=== PATIENT | female | born 1995 | race Caucasian/White ===

== ENCOUNTER → 2018-02-25 11:33 | Outpatient (CLI) | payer BC, SELFPAY ==
[2018-02-24 12:39] LABS: Internal QC Validated? YES +Cl - CLEAR BKGD; Pregnancy, Urine Negative Negative
[2018-02-25 14:15] LABS: AST(SGOT) 66 U/L (15-37); Alanine Aminotransfer ALT/SGPT 33 U/L (13-56); Albumin, Serum 3.7 g/dL (3.2-5.0); Alkaline Phosphatase 41 U/L (45-117); Bilirubin, Direct 0.12 mg/dL (0.00-0.30); Cholesterol 202 mg/dL (200); Globulin 3.6 g/dL (2.2-4.2); High Density Lipoprotein 92 mg/dL; Protein, Total 7.3 g/dL (6.4-8.2); Triglycerides 82 mg/dL; Very Low Density Lipoprotein 16 mg/dL (5-40)
== END ==
PROVIDERS: Referring Provider Dermatology; Visit Provider Dermatology
DX: Z00.00 Encounter for general adult medical examination without abnormal findings (principal); L70.0 Acne vulgaris; R11.0 Nausea; Z79.899 Other long term (current) drug therapy
CPT/HCPCS: 36415; 80061; 80076; 81025

== ENCOUNTER → 2018-04-13 10:26 | Outpatient (CLI) | payer BC, SELFPAY ==
[2018-04-13 12:56] LABS: Internal QC Validated? YES +Cl - CLEAR BKGD; Pregnancy, Urine Negative Negative
== END ==
PROVIDERS: Referring Provider Dermatology; Visit Provider Dermatology
DX: L70.0 Acne vulgaris (principal); Z79.899 Other long term (current) drug therapy
CPT/HCPCS: 81025

== ENCOUNTER → 2018-05-12 10:37 | Outpatient (CLI) | payer BC, SELFPAY ==
[2018-05-12 12:28] LABS: Internal QC Validated? YES +Cl - CLEAR BKGD
[2018-05-12 12:32] LABS: Pregnancy, Urine Negative Negative
--- OUTSIDE RECORDS SUMMARY | 2018-08-13 14:47 | XMS RPT_ITS ---
:1995 Author Organization OHIP Care Team Providers Name Role Phone Jennifer Jimenez Attending Unavailable Jennifer Jimenez Referring Unavailable DIAZ VILLANUEVA Primary Care Unavailable Jennifer Jimenez Attending Unavailable Jennifer Jimenez Referring Unavailable DIAZ VILLANUEVA Primary Care Unavailable Jennifer Jimenez Attending Unavailable Jennifer Jimenez Referring Unavailable DIAZ VILLANUEVA Primary Care Unavailable PROBLEMS PROBLEMS DATE TYPE CONDITION / CODE ATTENDING STATUS SOURCE 05/12/2018 Unknown L70.0 - Acne CrJennifer hoyt Active [facility] vulgaris / Community L70.0(ICD-10) Hospital Repository 05/12/2018 Unknown Z79.899 - Other Jennifer Jimenez Active [facility] (current[facility] drug Hospital therapy / Repository Z79.899(ICD-10) 02/25/2018 Unknown R11.10 - Jennifer Jimenez Active [facility] Vomiting, Community unspecified / Hospital R11.10(ICD-10) Repository 02/25/2018 Unknown Z00.00 - Jennifer Jimenez Active [facility] Encounter for [facility] medical Repository examination without abnormal findings / Z00.00(ICD-10) 01/15/2018 Active Dysuria / NA Active [facility] R30.0(ICD-10) [facility] [place] Repository PROCEDURES PROCEDURES No Procedure Records FoundRESULTS RESULTS ,URINE Collected: 05/12/2018 Status: F Source: [place] 10:42 AM [facility] REPOSITORY TYPE CODE TESTS RESULT OUT OF REFERENCE UNITS RANGE LAB L400.8000 Negative Normal HCGUQUAL Negative Result Comment: Very dilute urine specimens, as indicated by a low specific gravity, may not contain solar manufacturer's representative levels of hCG. If is still suspected, a first morning urine specimen should be collected 48 hours later and tested. Performed By: #### L400.7600 #### [facility] [address] [place], [place], [address] ,URINE Collected: 04/13/2018 Status: F Source: [place] 10:34 AM [facility] REPOSITORY TYPE CODE TESTS RESULT OUT OF REFERENCE UNITS RANGE LAB L400.8000 Negative Normal HCGUQUAL Negative Result Comment: Very dilute urine specimens, as indicated by a low specific gravity, may not contain solar manufacturer's representative levels of hCG. If is still suspected, a first morning urine specimen should be collected 48 hours later and tested. Performed By: #### L400.7600 #### [facility] [address] [place], [place], [address] LIVER PROFILE Collected: 02/25/2018 Status: F Source: [place] 11:34 AM [facility] REPOSITORY TYPE CODE TESTS RESULT OUT OF RANGE REFERENCE UNITS LAB L501.1500 6.4-8.2 g/dL Normal T PROT 7.3 LAB L501.1800 3.2-5.0 g/dL Normal ALB 3.7 LAB L501.1950 2.2-4.2 g/dL Normal GLOB 3.6 LAB L501.4100 15-37 U/L High AST 66 LAB L501.4305 45-117 U/L Low ALK P 41 LAB L501.4405 13-56 U/L Normal ALT 33 LAB L501.4600 0.20-1.00 mg/dL Normal T BILI 0.40 LAB L501.4700 0.00-0.30 mg/dL Normal D BILI 0.12 Performed By: #### L500.3400, L500.4100 #### [facility] [address] [place], [place], [address] LIPID PROFILE Collected: 02/25/2018 Status: F Source: [place] 11:34 AM [facility] REPOSITORY TYPE CODE TESTS RESULT OUT OF RANGE REFERENCE UNITS LAB L501.4900 200 mg/dL High CHOL 202 Result Comment: <200 mg/dL Desirable 200-240 mg/dL Borderline >240 mg/dL High Risk LAB L501.5000 mg/dL Normal TRIG 82 Result Comment: The drugs N-Acetylcysteine and Metamizole may falsely depress this assay. Serum Triglycerides Reference Interval Normal <150 mg/dL Borderline high 150 - 199 mg/dL High 200 - 499 mg/dL Very High > or = 500 mg/dL LAB L501.6400 mg/dL Normal HDL 92 Result Comment: The drugs N-Acetylcysteine and Metamizole may falsely depress this assay. Reference Range HDL <40 mg/dL Low HDL Cholesterol HDL >or= 60 mg/dL High HDL Cholesterol LAB L501.6500 0-130 mg/dL Normal LDL 94 LAB L501.6600 5-40 mg/dL Normal VLDL 16 Performed By: #### L500.3400, L500.4100 #### [facility] [address] [place], [place], [address] ,URINE Collected: 02/24/2018 Status: F Source: [place] 11:11 AM [facility] REPOSITORY TYPE CODE TESTS RESULT OUT OF REFERENCE UNITS RANGE LAB L400.8000 Negative Normal HCGUQUAL Negative Result Comment: Very dilute urine specimens, as indicated by a low specific gravity, may not contain solar manufacturer's representative levels of hCG. If is still suspected, a first morning urine specimen should be collected 48 hours later and tested. Performed By: #### L400.7600 #### [facility] [address] [place], [place], [address] PROGRESS Observed: 01/15/2018 Status: COMPLETED Source: [place] 10:47 AM [facility] REPOSITORY HNO ID: [id number] Author: Brennan Brice Service: (none) Author Type: Nurse Practitioner Type: Progress Notes Filed: 01/15/2018 11:11 AM Note Text: SUBJECTIVE: Paul Nolan is a 22 year old female. Who presents today with Burning and pain with urination since Thursday. She has had UTI in the past. She states she gets them at least once a year. She is using azo. She is also drinking lots of fluids. No fever abd pain v cp or sob HPI No past medical history on file. No family history on file. Social History Substance Use Topics - Smoking status: Never Smoker - Smokeless tobacco: Never Used - Alcohol use Not on file ALLERGIES No Known Allergies No current outpatient prescriptions on file. No current facility-administered medications for this visit. OBJECTIVE: BP 122/80 Pulse 80 Temp 36.6 ?C (97.9 ?F) (Tympanic) Resp 16 Wt 67.9 kg (149 lb 11.2 oz) ROS all other systems reviewed and are negative Physical Exam Constitutional: Well developed, well nourished, NAD, alert and oriented to person , place and time, in no apparent distress. ENT: Head is atraumatic, airway patent, mucosal membranes moist. Eyes: EOMI, PERRL, no drainage, vision unchanged Neck: supple with no palpable lymph nodes, no midline tenderness Cardiac: Normal rate and rhythm. Heart sounds S1, S2. No murmurs, rubs or gallops. Chest: nontender Respiratory: No retractions or use of accessory muscles. Breath sounds clear and equal bilaterally. GI: Abdomen soft and non-distended, without tenderness, rebound or guarding. Bowel sounds normal. : no CVA tenderness MS: no swelling tenderness or deformity in upper or lower extremities, no midline tenderness in thoracic or lumbar spine. Neuro: strength sensation and coordination intact. CN II-XII grossly intact, Skin: warm and dry with out rash, lesion or ecchymosis Psych: alert appropriate, speech clear It was a pleasure to take care of Paul Nolan today. She will take macrobid for her UTI. A culture will be sent. Patient will follow up with family physician. They may return to the Urgent Care or go to the ER for worsening symptoms or concerns. Patient verbalized understanding of plan of care and is in agreement. ASSESSMENT/PLAN: 1. Dysuria - ICD9: 788.1, ICD10: R30.0 (primary diagnosis) - UA DIP, URINE (POC) - URINE CULTURE - NITROFURANTOIN MONOHYDRATE AND MACROCRYSTAL 100 MG ORAL CAP 2. Recurrent UTI (urinary tract infection) - ICD9: 599.0, ICD10: N39.0 - UA DIP, URINE (POC) - URINE CULTURE - NITROFURANTOIN MONOHYDRATE AND MACROCRYSTAL 100 MG ORAL CAP Brennan Brice APRN.CNP CNOV Observed: 01/15/2018 Status: COMPLETED Source: [place] 10:45 AM [facility] REPOSITORY Office Visit ([facility]WSTR) PAUL NOLAN ([id number]) 1995 F Date Time Provider Department [facility] visit today, we recorded the following information about you: Temperature Pulse Respiration Blood pressure 97.9 degrees 80/minute 16/minute 122/80 Weight 67.9 kg Brennan Brice APRN.CNP 01/15/2018 11:11 AM Signed SUBJECTIVE: Paul Nolan is a 22 year old female. Who presents today with Burning and pain with urination since Thursday. She has had UTI in the past. She states she gets them at least once a year. She is using azo. She is also drinking lots of fluids. No fever abd pain v cp or sob HPI No past medical history on file. No family history on file. Social History Substance Use Topics - Smoking status: Never Smoker - Smokeless tobacco: Never Used - Alcohol use Not on file ALLERGIES No Known Allergies No current outpatient prescriptions on file. No current facility-administered medications for this visit. OBJECTIVE: BP 122/80 Pulse 80 Temp 36.6 ?C (97.9 ?F) (Tympanic) Resp 16 Wt 67.9 kg (149 lb 11.2 oz) ROS all other systems reviewed and are negative Physical Exam Constitutional: Well developed, well nourished, NAD, alert and oriented to person , place and time, in no apparent distress. ENT: Head is atraumatic, airway patent, mucosal membranes moist. Eyes: EOMI, PERRL, no drainage, vision unchanged Neck: supple with no palpable lymph nodes, no midline tenderness Cardiac: Normal rate and rhythm. Heart sounds S1, S2. No murmurs, rubs or gallops. Chest: nontender Respiratory: No retractions or use of accessory muscles. Breath sounds clear and equal bilaterally. GI: Abdomen soft and non-distended, without tenderness, rebound or guarding. Bowel sounds normal. : no CVA tenderness MS: no swelling tenderness or deformity in upper or lower extremities, no midline tenderness in thoracic or lumbar spine. Neuro: strength sensation and coordination intact. CN II-XII grossly intact, Skin: warm and dry with out rash, lesion or ecchymosis Psych: alert appropriate, speech clear It was a pleasure to take care of Paul Nolan today. She will take macrobid for her UTI. A culture will be sent. Patient will follow up with family physician. They may return to the Urgent Care or go to the ER for worsening symptoms or concerns. Patient verbalized understanding of plan of care and is in agreement. ASSESSMENT/PLAN: 1. Dysuria - ICD9: 788.1, ICD10: R30.0 (primary diagnosis) - UA DIP, URINE (POC) - URINE CULTURE - NITROFURANTOIN MONOHYDRATE AND MACROCRYSTAL 100 MG ORAL CAP 2. Recurrent UTI (urinary tract infection) - ICD9: 599.0, ICD10: N39.0 - UA DIP, URINE (POC) - URINE CULTURE - NITROFURANTOIN MONOHYDRATE AND MACROCRYSTAL 100 MG ORAL CAP Brennan Brice APRN.HOSIERY OPERATOR Referring Provider: SELF [200] Allergies As of Date: 01/15/2018 (No Known Allergies) Date Reviewed: 01/15/2018 Reviewed by: Ernestina Sadler LPN - Fully Assessed Reason for Visit: burning, urgency and frequency with urination [Other] Cmt: x 3-4 days Primary Visit Diagnosis:Dysuria [R30.0] Other Visit Diagnosis:Recurrent UTI (urinary tract infection) [N39.0] Order(s):UA DIP, URINE (POC) [[id number]] Order #: [id number]. #:[id number] URINE CULTURE [SQURCUL] Order #: [id number] nitrofurantoin monohydrate and macrocrystal (MACROBID) 100 mg capsuleTake 1 capsule by mouth twice daily with meals for 7 days.Disp: 14 capsuleRfl: 0 Prescriptions as of 01/15/2018 Sig: NITROFURANTOIN MONOHYDRATE AND * Take 1 capsule by mouth twice* Problem List As Of Date: 01/15/2018 (None) Prescriptions ordered this encounter Disp Refills Start End NITROFURANTOIN MONOHYDRATE AND MACROCR* 14 c* 0 01/15/2018 01/22/2018 Route: ORAL Sig: Take 1 capsule by mouth twice daily with meals for 7 days. Encounter Status:Closed by BRENNAN BRICE CNP on 01/15/18 Observed: 01/15/2018 Status: F Source: [place] URINE CULTURE 12:37 AM [facility] REPOSITORY Sp. Request/Comment: - Specimen received in preservative Culture Result - <10,000 CFU/ml Lactose positive gram negative bacilli --> ABNORMAL ALERT Insignificant colony count. No further workup. --> ABNORMAL ALERT Performed By: #### URCUL #### [facility] [address] [address] ALLERGIES ALLERGIES No Allergies Records FoundENCOUNTERS ENCOUNTERS ADMIT/DISCHARGE ACCOUNT ADMITTING ENCOUNTER LOCATION SOURCE NUMBER CLASS 05/12/2018 [id number] [facility] ing:LAB Repository 04/13/2018 [id number] [facility] ing:MTLAB Repository 02/25/2018 [id number] [facility] ing:MTLAB Repository 01/15/2018/01/19/[id number] Repository PAYERS PAYERS ENCOUNTER GUARANTOR PAYER SUBSCRIBER SOURCE 05/12/2018 PA[facility] y Number: [facility] ANAY FLAHERTY [id number] Repository [address]Hgy: [phone]) brigida Date:[id number] [phone] () [id number] [place] [address]RI: 05/12/2018 Secondary NOT GIVENUNK [facility] Insurance:SELF PAY [facility] Number: Effective Repository Date:2018-05-12 04/13/2018 PAUL [place] SMYTHE5 Insurance:ANTHEMPolic Community [place] y Number: [facility] [place] [id number] Repository [address]Jif: (753) brigida Date:[id number] [phone] () [id number] [place] [address]N[place]: 04/13/2018 Secondary NOT GIVENUNK [facility] Insurance:SELF PAY [facility]: Effective Repository Date:2018-04-13 02/25/2018 PAUL [place] SMYTHE5 Insurance:ANTHEMPolic Community [place] y Number: [facility] [place] [id number] Repository [address]Umj: [phone] brigida Date:3771-12-14LL [phone] () [address], [place] [address]CY: 02/25/2018 Secondary NOT GIVENUNK [facility] Insurance:SELF PAY [facility] Number: Effective Repository Date:2018-02-24
== END ==
PROVIDERS: Referring Provider Dermatology; Visit Provider Dermatology
DX: L70.0 Acne vulgaris (principal); Z79.899 Other long term (current) drug therapy
CPT/HCPCS: 81025

== ENCOUNTER → 2018-06-30 09:07 | Outpatient (CLI) | payer BC, SELFPAY ==
[2018-06-30 11:04] LABS: Internal QC Validated? YES +Cl - CLEAR BKGD; Pregnancy, Urine Negative Negative
== END ==
PROVIDERS: Referring Provider Dermatology; Visit Provider Dermatology
DX: L70.0 Acne vulgaris (principal); Z79.899 Other long term (current) drug therapy
CPT/HCPCS: 81025

== ENCOUNTER → 2018-08-04 09:17 | Outpatient (CLI) | payer BC, SELFPAY ==
[2018-08-04 10:17] LABS: Internal QC Validated? YES +Cl - CLEAR BKGD
[2018-08-04 10:20] LABS: Pregnancy, Urine Negative Negative
== END ==
PROVIDERS: Referring Provider Dermatology; Visit Provider Dermatology
DX: L70.0 Acne vulgaris (principal)
CPT/HCPCS: 81025

== ENCOUNTER → 2018-09-22 | Outpatient (CLI) | payer BC, SELFPAY ==
[2018-09-22 10:37] LABS: Internal QC Validated? YES +Cl - CLEAR BKGD; Pregnancy, Urine Negative Negative
== END | disposition home or self-care (01) ==
LOC: MTLAB 09:09
PROVIDERS: Referring Provider Dermatology; Visit Provider Dermatology
DX: L70.0 Acne vulgaris (principal); Z79.899 Other long term (current) drug therapy
CPT/HCPCS: 81025

== ENCOUNTER → 2018-10-26 | Outpatient (CLI) | payer BC, SELFPAY ==
[2018-10-26 12:53] LABS: Thyroid Stim Hormone (TSH) 1.62 uIU/mL (0.358-3.74)
== END | disposition home or self-care (01) ==
LOC: MFPLAB 09:44
PROVIDERS: Family Provider Family Medicine; PCP Family Medicine; Referring Provider Family Medicine; Visit Provider Family Medicine
DX: F41.9 Anxiety disorder, unspecified (principal); F32.9 Major depressive disorder, single episode, unspecified
CPT/HCPCS: 36415; 84443

== ENCOUNTER → 2018-10-27 | Outpatient (CLI) | payer BC, SELFPAY ==
[2018-10-27 12:31] LABS: Internal QC Validated? YES +Cl - CLEAR BKGD; Pregnancy, Urine Negative Negative
== END | disposition home or self-care (01) ==
LOC: MTLAB 10:14
PROVIDERS: Family Provider Family Medicine; PCP Family Medicine; Referring Provider Dermatology; Visit Provider Dermatology
DX: L70.0 Acne vulgaris (principal); Z79.899 Other long term (current) drug therapy; L20.84 Intrinsic (allergic) eczema
CPT/HCPCS: 81025

== ENCOUNTER → 2018-11-11 | Outpatient (CLI) | payer BC, SELFPAY ==
[2018-11-11 17:53] LABS: Internal QC Validated? YES +Cl - CLEAR BKGD; Pregnancy, Urine Negative Negative
== END | disposition home or self-care (01) ==
LOC: MTLAB 15:59
PROVIDERS: Family Provider Family Medicine; PCP Family Medicine; Referring Provider Physician Assistant Medical; Visit Provider Physician Assistant Medical
DX: L70.0 Acne vulgaris (principal); Z79.899 Other long term (current) drug therapy
CPT/HCPCS: 81025

== ENCOUNTER → 2018-12-29 | Outpatient (CLI) | payer BC, SELFPAY ==
[2018-12-29 12:20] LABS: Internal QC Validated? YES +Cl - CLEAR BKGD; Pregnancy, Urine Negative Negative
== END | disposition home or self-care (01) ==
LOC: MTLAB 09:35
PROVIDERS: Family Provider Family Medicine; PCP Family Medicine; Referring Provider Dermatology; Visit Provider Dermatology
DX: L70.0 Acne vulgaris (principal); Z79.899 Other long term (current) drug therapy
CPT/HCPCS: 81025

== ENCOUNTER → 2019-02-02 09:42 | Outpatient (CLI) | payer BC, SELFPAY ==
[2019-02-02 12:18] LABS: Internal QC Validated? YES +Cl - CLEAR BKGD; Pregnancy, Urine Negative Negative
== END ==
PROVIDERS: Family Provider Family Medicine; PCP Family Medicine; Referring Provider Dermatology; Visit Provider Dermatology
DX: L70.0 Acne vulgaris (principal); L81.4 Other melanin hyperpigmentation; D18.01 Hemangioma of skin and subcutaneous tissue; D22.5 Melanocytic nevi of trunk; Z71.89 Other specified counseling; D48.5 Neoplasm of uncertain behavior of skin
CPT/HCPCS: 81025